=== PATIENT | male | born 1985 | race American Indian/Alaskan Native ===

== ENCOUNTER 2019-03-27 14:06 | Emergency (ER) | payer SELFPAY ==
--- NOTE | 2019-03-27 14:28 | Event Note ---
ED Screening Note ED Screening Note: N/V that began this morning no diarrhea lightheaded right sided abd pain no fever PMHx none no allergies to meds states he began experiencing after eating something that he believes was bad This initial assessment/diagnostic orders/clinical plan/treatment(s) is/are subject to change based on patients health status, clinical progression and re- assessment by fellow clinical providers in the ED. Further treatment and workup at subsequent clinical providers discretion. Patient/guardian urged not to elope from the ED as their condition may be serious if not clinically assessed and managed. Initial orders include: labs, UA
[2019-03-27 14:46] LABS: Bilirubin,Urine NEG (Negative); Blood,Urine NEG (Negative); Color,Urine Yellow (Yellow); Protein,Urine <15 mg/dL mg/dL (Negative); Urobilinogen,Urine < 2.0 mg/dL (<2.0); WBC,Urine < 1.0 /HPF (0.0-6.0)
[2019-03-27 16:12] LABS: Hematocrit 48.5 % (35.5-45.6); Hemoglobin 16.3 gm/dl (11.8-15.2); Mean Corpuscular HGB Conc 34 % (32-34); Mean Corpuscular Volume 86 fl (84-94); Platelet Count 187 K/mm3 (140-440); Red Blood Count 5.66 M/mm3 (3.65-5.03); Red Cell Distribution Width 13.2 % (13.2-15.2)
[2019-03-27 17:18] LABS: Alanine Aminotransferase 42 units/L (7-56); Albumin 4.6 g/dL (3.9-5); BUN/Creatinine Ratio 8; Blood Urea Nitrogen 9 mg/dL (9-20); Calcium 9.9 mg/dL (8.4-10.2); Hemolysis Index 47
[2019-03-27] MEDS ORDERED: DICYCLOMINE 20 MG TAB PO ONE (19:17)
[2019-03-27] MEDS ORDERED: ONDANSETRON 4 MG ODT TAB PO ONE (19:17)
[2019-03-27] MEDS ORDERED: FAMOTIDINE 20 MG TAB PO ONE (19:17)
--- NOTE | 2019-03-27 19:41 | Emergency Department Report ---
ED N/V/D HPI - General Chief complaint: Nausea/Vomiting/Diarrhea Stated complaint: VOMITING/DIZZY Time Seen by Provider: 03/27/19 14:26 Source: patient Mode of arrival: Ambulatory Limitations: No Limitations - History of Present Illness Initial comments: Patient is a 33-year-old -[place] male with no past medical history who presents to the ED with complaint of acute onset persistent intermittent nausea and vomiting and diffuse abdominal pain worse in the epigastric area for the last 12 hours after eating contaminated food from a vending machine. Patient denies dizziness, syncope, chest pain, shortness of breath, fever, chills, diarrhea, dysuria, urinary frequency and urgency, testicular pain, headache, sore throat, hematemesis, hematochezia or change in vision. MD complaint: nausea, vomiting, abdominal pain -: Sudden, hour(s) (12) Description of Vomiting: food contents, watery, bilious Description of Diarrhea: other (None) Associated Abdominal Pain: Yes (diffuse) Location: diffuse Severity: moderate Pain Scale: 6 Quality: cramping, aching, dull Consistency: intermittent Improves with: none Worsens with: eating, vomiting Context: possible food poisoning Associated Symptoms: denies other symptoms, myalgias, loss of appetite, malaise, nausea/vomiting. denies: chest pain, cough, diaphoresis, fever/chills, headaches, rash, dysuria, shortness of breath, syncope, other - Related Data Previous Rx's Medication Instructions Recorded Last Taken Type Naproxen [Naprosyn] 500 mg PO BID #20 tablet 11/04/15 Unknown Rx methylPREDNISolone [Medrol] 4 mg PO QAM #1 tab.ds.pk 11/04/15 Unknown Rx Dicyclomine [Bentyl] 20 mg PO Q6H PRN #24 tablet 03/27/19 Unknown Rx Famotidine [Pepcid] 20 mg PO Q12H #30 tablet 03/27/19 Unknown Rx Ondansetron [Zofran Odt] 4 mg PO Q6HR PRN #20 tab.rapdis 03/27/19 Unknown Rx Allergies Allergy/AdvReac Type Severity Reaction Status Date / Time No Known Allergies Allergy Unverified 11/04/15 12:26 ED Review of Systems ROS: Stated complaint: VOMITING/DIZZY Other details as noted in HPI Constitutional: denies: chills, fever Eyes: denies: eye pain, eye discharge, vision change ENT: denies: ear pain, throat pain Respiratory: denies: cough, shortness of breath, wheezing Cardiovascular: denies: chest pain, palpitations Endocrine: no symptoms reported Gastrointestinal: abdominal pain, nausea, vomiting. denies: diarrhea Genitourinary: denies: urgency, dysuria Musculoskeletal: denies: back pain, joint swelling, arthralgia Skin: denies: rash, lesions Neurological: denies: headache, weakness, paresthesias Psychiatric: denies: anxiety, depression Hematological/Lymphatic: denies: easy bleeding, easy bruising ED Past Medical Hx - Past Medical History Previous Medical History?: No - Surgical History Additional Surgical History: Testicle surgery @ young age - Social History Smoking Status: Never Smoker Substance Use Type: None - Medications Home Medications: Home Medications Medication Instructions Recorded Confirmed Last Taken Type Naproxen [Naprosyn] 500 mg PO BID #20 tablet 11/04/15 Unknown Rx methylPREDNISolone [Medrol] 4 mg PO QAM #1 tab.ds.pk 11/04/15 Unknown Rx Dicyclomine [Bentyl] 20 mg PO Q6H PRN #24 tablet 03/27/19 Unknown Rx Famotidine [Pepcid] 20 mg PO Q12H #30 tablet 03/27/19 Unknown Rx Ondansetron [Zofran Odt] 4 mg PO Q6HR PRN #20 tab.rapdis 03/27/19 Unknown Rx ED Physical Exam - General Limitations: No Limitations General appearance: alert, in no apparent distress - Head Head exam: Present: atraumatic, normocephalic, normal inspection - Eye Eye exam: Present: normal appearance, PERRL, EOMI Pupils: Present: normal accommodation - ENT ENT exam: Present: normal exam, normal orophraynx, mucous membranes moist, TM's normal bilaterally, normal external ear exam - Neck Neck exam: Present: normal inspection, full ROM. Absent: tenderness, lymphadenopathy - Respiratory Respiratory exam: Present: normal lung sounds bilaterally. Absent: respiratory distress, wheezes, chest wall tenderness, accessory muscle use, decreased breath sounds - Cardiovascular Cardiovascular Exam: Present: regular rate, normal rhythm, normal heart sounds. Absent: systolic murmur, diastolic murmur, rubs, gallop - GI/Abdominal GI/Abdominal exam: Present: soft, hyperactive bowel sounds. Absent: tenderness, guarding, rebound - Extremities Exam Extremities exam: Present: normal inspection, full ROM, normal capillary refill - Back Exam Back exam: Present: normal inspection, full ROM. Absent: tenderness, CVA tenderness (R), CVA tenderness (L), muscle spasm, paraspinal tenderness, v ertebral tenderness - Neurological Exam Neurological exam: Present: alert, oriented X3, CN II-XII intact, normal gait, reflexes normal - Psychiatric Psychiatric exam: Present: normal affect, normal mood - Skin Skin exam: Present: warm, dry, intact, normal color. Absent: rash ED Course Vital Signs 03/27/19 03/27/19 14:14 14:26 Temperature 98.4 F 98.4 F Pulse Rate 73 73 Respiratory 16 18 Rate Blood Pressure 132/99 Blood Pressure 132/99 [Right] O2 Sat by Pulse 100 100 Oximetry ED Medical Decision Making - Lab Data Result diagrams: 03/27/19 15:15 03/27/19 15:15 - Medical Decision Making This is a 33-year-old male who presented to the ED with complaint of acute onset persistent intermittent nausea and vomiting and diffuse abdominal pain after consuming a contaminated food about 12 hours ago. In the ED, patient is alert and oriented 3 and is not in any distress, siping soda during the physical exam. Lab test results are reviewed and are all nonactionable. Patient was to follow nausea and vomiting and also given antacids. Patient was discharged home on prescriptions of antiemetics, antacids and pain medications. Patient was advised to maintain a clear liquid diet for 12-24 hours, and take medications as needed, and follow-up with his primary care physician in 5-7 days for reeva luation or return to the ED immediately if symptoms get worse. - Differential Diagnosis viral gastroenteritis; Dehydration; GERD; Gastritis Critical care attestation.: If time is entered above; I have spent that time in minutes in the direct care o f this critically ill patient, excluding procedure time. ED Disposition Clinical Impression: Nausea and vomiting in adult, Viral gastroenteritis Disposition: TO HOME OR SELFCARE Is pt being admited?: No Does the pt Need Aspirin: No Condition: Stable Instructions: Acute Nausea and Vomiting (ED), Gastroenteritis (ED), Food P oisoning (ED) Additional Instructions: Maintain a clear liquid diet for 12-24 hours, take medications as advised with food, drink plenty of fluids and follow-up with your primary care physician in 5-7 days for reevaluation. Return to the ED immediately if symptoms get worse. Prescriptions: Dicyclomine [Bentyl] 20 mg PO Q6H PRN #24 tablet PRN Reason: Pain , Severe (7-10) Famotidine [Pepcid] 20 mg PO Q12H #30 tablet Ondansetron [Zofran Odt] 4 mg PO Q6HR PRN #20 tab.rapdis PRN Reason: Nausea Referrals: [facility] [Outside] - 3-5 Days Forms: Work/School Release Form(ED) Time of Disposition: 19:34 Print Language: PORTUGUESE
[2019-03-27 20:04] VITALS: BP 130/88
[2019-03-27 21:58] LABS: Large Platelets 1+; Platelet Estimate Consistent w Auto; RBC Morphology Normal; Total Cells Counted 100
== END 2019-03-27 20:04 | disposition home or self-care (01) ==
LOC: ED 14:06
DX: K21.9 Gastro-esophageal reflux disease without esophagitis (principal); Z79.899 Other long term (current) drug therapy; Z98.890 Other specified postprocedural states
CPT/HCPCS: 36415; 80053; 81001; 83690; 85007; 85025; Q0162